=== PATIENT | male | born 1950 | race Caucasian/White ===

== ENCOUNTER 2020-07-14 21:13 | Emergency (ER) | payer MEDICARE, OTHER ==
[~2020-07-14] VITALS: Ht 175.3 cm; Wt 80.6 kg
[~2020-07-14 21:13] MED LIST: FISH OIL PO; LEVO75TA5 PO; PROBIOTIC PO; [UNRECOGNIZED DRUG - OTHER] PO
--- NOTE | 2020-07-14 21:20 | NUR ---
LATE ENTRY D/T PT CARE: PT CAME INTO ED THIS EVENING WITH HIS SISTER AND STARTING TO HAVE COVID LIKE SYMPTOMS THAT HAVE SIGNIFICANTLY WORSENED OVER THE PAST 3 DAYS. PT REPORTS FEVER, BODY ACHES, FATIGUE, SOB, AND NAUSEA. PT ALSO C/O LOSS OF TASTE AND SMELL. PT SKIN IS HOT TO THE TOUCH. Patient is resting comfortably in bed. Bed in lowest, rails engaged, call light on lap. WCTM. SISTER AT BS. PLACED ON SPO2/BP/ECG MONITORING
[2020-07-14] MEDS ORDERED: KETOROLAC 30 MG/1 ML IVPush ONE (22:00)
[2020-07-14] MEDS ORDERED: SODIUM CHLORIDE 0.9% 1,000ML IVBOLUS ONE (22:00)
[2020-07-14 22:16] LABS: BASOPHILS % (AUTO) 0 % (0-1); EOSINOPHILS % (AUTO) 0 % (1-7); LYMPHOCYTES % (AUTO) 8 % (22-44); MEAN CORPUSCULAR HEMOGLOBIN 30.6 pg (27.5-34.5); MEAN CORPUSCULAR HGB CONC 35.2 g/dL (33.2-36.2); MEAN PLATELET VOLUME 7.6 fL (7.4-10.4); MONOCYTES % (AUTO) 5 % (2-9); NEUTROPHILS % (AUTO) 87 % (42-75); PLATELET COUNT 217 x10^3/uL (130-400); RED BLOOD COUNT 4.47 x10^6/uL (4.38-5.82); RED CELL DISTRIBUTION WIDTH 12.6 % (9.4-14.8)
[2020-07-14] MEDS ORDERED: KETOROLAC 30 MG/1 ML ONE (22:18)
[2020-07-14 22:23] LABS: ALANINE AMINOTRANSFERASE 13 U/L (12-78); ALBUMIN 3.4 g/dL (3.4-5.0); ANION GAP 10 mmol/L (5-15); CALCIUM 8.2 mg/dL (8.5-10.1); CHLORIDE 101 mmol/L (98-107); CREATININE 1.15 mg/dL (0.7-1.3)
[2020-07-14 22:27] LABS: ALKALINE PHOSPHATASE 80 U/L (45-117); BILIRUBIN,TOTAL 0.5 mg/dL (0.2-1.0); TOTAL PROTEIN 7.3 g/dL (6.4-8.2); TROPONIN I < 0.015 ng/mL (0.000-0.045)
[2020-07-14 22:35] LABS: MD NO
--- NOTE | 2020-07-14 22:35 | NUR ---
Patient is resting comfortably in bed. Bed in lowest, rails engaged, call light on lap. Vital Signs within normal limits. NAD, MEDICATED PER MAR, DENIES ADDITIONAL NEEDS AT THIS TIME. UA SAMPLE OBTAINED AND WALKED TO LAB AT THIS TIME. MABEL.
--- NOTE | 2020-07-14 23:30 | NUR ---
Patient is resting comfortably in bed. Bed in lowest, rails engaged, call light on lap. Vital Signs within normal limits. WCTM.
[2020-07-15 00:01] LABS: MICROSCOPIC NOT IND
[2020-07-15 00:09] VITALS: BP 116/70
--- NOTE | 2020-07-15 00:25 | NUR ---
Patient/Caregiver given discharge instructions and they have confirmed that they understand the instructions. Patient ambulatory with steady gait but preferred wheelchair for dc. NAD, all questions answered appropriately, denies additional needs at this time. No personal belongings left in room after discharge.
== END 2020-07-15 00:27 | disposition home or self-care (01) ==
LOC: ED 22:00
DX: U07.1 COVID-19 (principal); J06.9 Acute upper respiratory infection, unspecified; J40 Bronchitis, not specified as acute or chronic; R94.31 Abnormal electrocardiogram [ECG] [EKG]; I10 Essential (primary) hypertension; E78.00 Pure hypercholesterolemia, unspecified
CPT/HCPCS: 36415; 71045; 80053; 81003; 83605; 84145; 84484; 85025; 93005; 96374; 96375; 99285; J1885; J7030; U0003; U0005